=== PATIENT | female | born 1985 | race Two or more races ===

== ENCOUNTER 2021-10-08 13:52 | Emergency (ER) | payer MEDICAID, OTHER ==
[~2021-10-08] VITALS: Ht 165.1 cm; Wt 90.5 kg
[2021-10-08 15:52] VITALS: BP 90/74
[2021-10-08] MEDS ORDERED: IBUP800T27 PO (15:59)
== END 2021-10-08 16:23 | disposition home or self-care (01) ==
LOC: ER 13:52
DX: S93.401A Sprain of unspecified ligament of right ankle, initial encounter (principal); Z79.1 Long term (current) use of non-steroidal anti-inflammatories (NSAID); W01.0XXA Fall on same level from slipping, tripping and stumbling without subsequent striking against object, initial encounter; Y93.89 Activity, other specified; Y92.89 Other specified places as the place of occurrence of the external cause; Y99.8 Other external cause status
CPT/HCPCS: 73610